=== PATIENT | female | born 1960 | race Caucasian/White ===

== ENCOUNTER 2024-10-09 10:22 | Emergency (ER) | payer MEDICARE, BC ==
[~2024-10-09] VITALS: Ht 167.6 cm; Wt 65.8 kg
[2024-10-09] MEDS ORDERED: IBUPROFEN 600 MG TABLET ONE (12:10)
[2024-10-09] MEDS ORDERED: ACETAMINOPHEN ES 500 MG TABLET ONE (12:10)
[2024-10-09] MEDS: IBUPROFEN 600 MG TABLET PO ONE (12:11)
[2024-10-09] MEDS: ACETAMINOPHEN ES 500 MG TABLET PO ONE (12:18)
[2024-10-09] MEDS ORDERED: LIDOCAINE 1% INJ 50 ML MDV IJ ONE (13:31)
[2024-10-09] MEDS: LIDOCAINE 1% INJ 50 ML MDV IJ ONE (13:34)
[2024-10-09] MEDS ORDERED: ACET-2605 PO (15:01)
[2024-10-09] MEDS ORDERED: IBUP-1490 PO (15:01)
[2024-10-09 15:46] VITALS: BP 137/68; TEMP 98.4; O2SAT 99
== END 2024-10-09 15:47 | disposition home or self-care (01) ==
LOC: ER 10:39
DX: S62.615A Displaced fracture of proximal phalanx of left ring finger, initial encounter for closed fracture (principal); S62.617A Displaced fracture of proximal phalanx of left little finger, initial encounter for closed fracture; M79.642 Pain in left hand; M79.645 Pain in left finger(s); Z88.5 Allergy status to narcotic agent; W01.0XXA Fall on same level from slipping, tripping and stumbling without subsequent striking against object, initial encounter; Y93.01 Activity, walking, marching and hiking; Y92.480 Sidewalk as the place of occurrence of the external cause; Y99.8 Other external cause status
CPT/HCPCS: 26742; 99285; 73130 ×2; J3490